=== PATIENT | male | born 1965 | race Caucasian/White ===

== ENCOUNTER 2021-08-15 12:55 | Emergency (ER) | payer BC, OTHER ==
[2021-08-15 13:25] VITALS: BP 149/84; PULSE 82; TEMP 98.1; BMI 26.3
[2021-08-15] MEDS ORDERED: SODIUM CHLORIDE 1,000 ML IV STA (16:32)
[2021-08-15] MEDS ORDERED: KETOROLAC TROMETHAMINE 30 MG/1 ML VIAL IVPUSH ONE (16:32)
[2021-08-15] MEDS ORDERED: PANTOPRAZOLE SODIUM 40 MG VIAL IVPB ONE (16:32)
[2021-08-15] MEDS ORDERED: KETOROLAC TROMETHAMINE 30 MG/1 ML VIAL ONE (16:44)
[2021-08-15] MEDS ORDERED: PANTOPRAZOLE SODIUM 40 MG VIAL ONE (16:45)
[2021-08-15 16:52] LABS: BASO % 0.5 % (0-2.0); EOS % 1.3 % (0-4.5); HEMATOCRIT 47.7 % (35.4-49); HEMOGLOBIN 16.6 GM/dL (11.7-16.9); LYMPH % 26.1 % (8-40); MCH 31.3 pg (25.7-33.7); MCHC 34.7 g/dl (32.0-35.9); MEAN CELL VOLUME 90.2 fl (80-96); MEAN PLT VOLUME 9.4 fl (7.5-11.1); MONO % 5.1 % (3.8-10.2); PLATELET COUNT 180 10^3/uL (134-434); RBC 5.29 M/mm3 (4.00-5.60); RDW 14.4 % (11.9-15.9); WHITE BLOOD COUNT 8.3 K/mm3 (4.0-10.0)
[2021-08-15 16:59] LABS: INR 1.06 (0.83-1.09); PROTHROMBIN TIME (PATIENT) 12.2 SEC (9.7-13.0)
[2021-08-15] MEDS ORDERED: cefTRIAXone SODIUM 1 GM VIAL ONE (17:14)
[2021-08-15 17:21] LABS: CALCIUM 9.7 mg/dL (8.5-10.1); MAGNESIUM 2.4 mg/dL (1.8-2.4)
[2021-08-15 17:22] LABS: ALBUMIN 4.4 g/dl (3.4-5.0); BLOOD UREA NITROGEN 12.5 mg/dL (7-18)
[2021-08-15 17:24] LABS: CREATININE 1.3 mg/dL (0.55-1.3)
[2021-08-15 17:26] LABS: TOT PROT 7.7 g/dl (6.4-8.2)
[2021-08-15 17:27] LABS: BILIRUBIN,TOTAL 0.5 mg/dL (0.2-1)
== END 2021-08-15 20:19 | disposition home or self-care (01) ==
LOC: JER 12:55
PROC: 3E0333Z Introduction of Anti-inflammatory into Peripheral Vein, Percutaneous Approach (ICD-10-PCS; principal; 2021-08-15)
PROC: 3E033GC Introduction of Other Therapeutic Substance into Peripheral Vein, Percutaneous Approach (ICD-10-PCS; 2021-08-15)
PROC: 3E0337Z Introduction of Electrolytic and Water Balance Substance into Peripheral Vein, Percutaneous Approach (ICD-10-PCS; 2021-08-15)
DX: R10.30 Lower abdominal pain, unspecified (principal)
CPT/HCPCS: 36415; 74176-TC; 80053; 82550; 83690; 83735; 84100; 85025; 85610; 86850; 86900; 86901; 93005; 93010; 99285-25

== ENCOUNTER 2023-01-06 04:05 | Emergency (ER) | payer BC, OTHER ==
[2023-01-06 04:19] VITALS: BMI 27.3
[2023-01-06] MEDS ORDERED: ACETAMINOPHEN INJECTION 100 ML IVPB ONE (04:56)
[2023-01-06 05:17] LABS: BASO % 0.4 % (0-2.0); EOS % 0.8 % (0-4.5); HEMATOCRIT 44.8 % (35.4-49); LYMPH % 12.8 % (8-40); MCH 30.3 pg (25.7-33.7); MCHC 33.5 g/dl (32.0-35.9); MEAN CELL VOLUME 90.4 fl (80-96); MEAN PLT VOLUME 9.1 fl (7.5-11.1); PLATELET COUNT 174 10^3/uL (134-434); RBC 4.96 M/mm3 (4.00-5.60); RDW 13.1 % (11.9-15.9); WHITE BLOOD COUNT 10.4 K/mm3 (4.0-10.0)
[2023-01-06] MEDS ORDERED: ACETAMINOPHEN 1000 MG/100 ML BAG IVPB ONE (05:21)
[2023-01-06 05:39] LABS: POTASSIUM 4.5 mmol/L (3.5-5.1)
[2023-01-06 05:41] LABS: ALBUMIN 3.8 g/dl (3.4-5.0); BLOOD UREA NITROGEN 25.4 mg/dL (7-18); CALCIUM 8.9 mg/dL (8.5-10.1)
[2023-01-06 05:44] LABS: CREATININE 1.4 mg/dL (0.55-1.3)
[2023-01-06 05:46] LABS: BILIRUBIN,TOTAL 0.4 mg/dL (0.2-1); TOT PROT 7.2 g/dl (6.4-8.2)
[2023-01-06 07:24] VITALS: TEMP 97.9
[2023-01-06 08:46] VITALS: BP 130/87; PULSE 80; RESP 16
== END 2023-01-06 09:17 | disposition home or self-care (01) ==
LOC: JER 04:05
PROC: 3E033NZ Introduction of Analgesics, Hypnotics, Sedatives into Peripheral Vein, Percutaneous Approach (ICD-10-PCS; principal; 2023-01-06)
DX: R42 Dizziness and giddiness (principal); R51.9 Headache, unspecified; R11.10 Vomiting, unspecified; F41.9 Anxiety disorder, unspecified
CPT/HCPCS: 36415; 70450-TC; 71046-TC-FY; 80053; 84484; 85025; 93005; 93010; 99285-25